=== PATIENT | male | born 1945 | race American Indian/Alaskan Native ===

== ENCOUNTER 2018-08-10 15:05 | Inpatient (IN) | payer MEDICARE ==
[2018-08-10 16:08] LABS: Basophils # (Auto) 0.1 K/mm3 (0.0-0.1); Basophils % (Auto) 1.2 % (0.0-1.8); Eosinophils % (Auto) 0.3 % (0.0-4.3); Hemoglobin 9.9 gm/dl (11.8-15.2); Lymphocytes # (Auto) 0.8 K/mm3 (1.2-5.4); Mean Corpuscular HGB Conc 31 % (32-34); Mean Corpuscular Volume 75 fl (84-94); Monocytes # (Auto) 0.3 K/mm3 (0.0-0.8); Monocytes % (Auto) 5.2 % (0.0-7.3); Platelet Count 402 K/mm3 (140-440); Red Blood Count 4.25 M/mm3 (3.65-5.03); Red Cell Distribution Width 17.7 % (13.2-15.2)
[2018-08-10] MEDS ORDERED: ZOFRAN IV ONE ×2 (16:18→22:13)
[2018-08-10] MEDS ORDERED: NACL 0.9% 1000 ML 1,000 ML ONE (16:18)
[2018-08-10] MEDS ORDERED: NACL 0.9% 1000 ML 1,000 ML IV ONE (16:18)
--- NOTE | 2018-08-10 16:18 | Emergency Department Report ---
ED Abdominal Pain HPI - General Chief Complaint: Abdominal Pain Stated Complaint: VOMITING/DEHDRATION Time Seen by Provider: 08/10/18 16:17 Source: patient, EMS Mode of arrival: Stretcher Limitations: No Limitations - History of Present Illness Initial Comments: Patient is a 72-year-old male presents emergency room for evaluation for nausea vomiting and abdominal pain. Patient was sent here from [facility] for evaluation due to his symptoms. Patient arrived via EMS. Patient states his pain is a 7 out of 10 and is generalized. Patient states he has been vomiting for approximately 3 days. Patient states he has has constipation has been going on for 12 days. Patient denies diarrhea. Patient denies blood in his vomitus. Patient states he is feeling dry. Patient is currently over with psychiatric facility for a 1013 for suicidal ideations but according to the document was downgraded to a 1012 and is a voluntary admission to [place] Complaint: abdominal pain -: Sudden Location: diffuse Radiation: none Migration to: no migration Severity scale (0 -10): 7 Quality: cramping, stabbing, aching Consistency: constant Improves With: rest Worsens With: eating, vomiting, movement Associated Symptoms: nausea, vomiting, constipation. denies: diarrhea, fever, chills, dysuria, hematemesis, hematochezia, melena, hematuria - Related Data Home Medications Medication Instructions Recorded Confirmed Last Taken ARIPiprazole [Abilify] 15 mg PO QHS 08/10/18 08/10/18 Unknown Docusate Sodium [Colace] 100 mg PO BID 08/10/18 08/10/18 Unknown Gabapentin [Neurontin] 800 mg PO TID 08/10/18 08/10/18 Unknown Magnesium Hydroxide [Milk of 40 mg PO DAILY 08/10/18 08/10/18 Unknown Magnesia] Polyethylene Glycol 3350 [Miralax 17 gm PO QDAY 08/10/18 08/10/18 Unknown 3350] Sertraline [Zoloft] 50 mg PO QAM 08/10/18 08/10/18 Unknown Trazodone HCl 150 mg PO QHS 08/10/18 08/10/18 Unknown Allergies Allergy/AdvReac Type Severity Reaction Status Date / Time No Known Allergies Allergy Unverified 08/10/18 15:20 ED Review of Systems ROS: Stated complaint: VOMITING/DEHDRATION Other details as noted in HPI Constitutional: denies: chills, fever Eyes: denies: eye pain, eye discharge, vision change ENT: denies: ear pain, throat pain Respiratory: denies: cough, shortness of breath, wheezing Cardiovascular: denies: chest pain, palpitations Endocrine: no symptoms reported Gastrointestinal: abdominal pain, nausea, vomiting, constipation. denies: diar santhosh Genitourinary: denies: urgency, dysuria Musculoskeletal: denies: back pain, joint swelling, arthralgia Skin: denies: rash, lesions Neurological: denies: headache, weakness, paresthesias Psychiatric: denies: anxiety, depression Hematological/Lymphatic: denies: easy bleeding, easy bruising ED Past Medical Hx - Past Medical History Previous Medical History?: Yes Hx Hypertension: Yes Additional medical history: BPH, Chronic Pain - Social History Smoking Status: Current Every Day Smoker Substance Use Type: None - Medications Home Medications: Home Medications Medication Instructions Recorded Confirmed Last Taken Type ARIPiprazole [Abilify] 15 mg PO QHS 08/10/18 08/10/18 Unknown History Docusate Sodium [Colace] 100 mg PO BID 08/10/18 08/10/18 Unknown History Gabapentin [Neurontin] 800 mg PO TID 08/10/18 08/10/18 Unknown History Magnesium Hydroxide [Milk of 40 mg PO DAILY 08/10/18 08/10/18 Unknown History Magnesia] Polyethylene Glycol 3350 [Miralax 17 gm PO QDAY 08/10/18 08/10/18 Unknown His tory 3350] Sertraline [Zoloft] 50 mg PO QAM 08/10/18 08/10/18 Unknown History Trazodone HCl 150 mg PO QHS 08/10/18 08/10/18 Unknown History ED Physical Exam - General Limitations: No Limitations General appearance: alert, in no apparent distress - Head Head exam: Present: atraumatic, normocephalic - Eye Eye exam: Present: normal appearance - ENT ENT exam: Present: mucous membranes moist - Neck Neck exam: Present: normal inspection - Respiratory Respiratory exam: Present: normal lung sounds bilaterally. Absent: respiratory distress, wheezes, rales - Cardiovascular Cardiovascular Exam: Present: regular rate, normal rhythm. Absent: systolic murmur, diastolic murmur, rubs, gallop - GI/Abdominal GI/Abdominal exam: Present: soft, tenderness (generalized tenderness), normal bowel sounds. Absent: distended, guarding, rebound - Rectal Rectal exam: Present: deferred - Extremities Exam Extremities exam: Present: normal inspection - Back Exam Back exam: Present: normal inspection - Neurological Exam Neurological exam: Present: alert, oriented X3 - Psychiatric Psychiatric exam: Present: normal affect, normal mood - Skin Skin exam: Present: warm, dry, intact, normal color. Absent: rash ED Course Vital Signs 08/10/18 08/10/18 08/10/18 16:02 16:03 21:37 Temperature 97.6 F Pulse Rate 83 78 Respiratory 22 22 16 Rate Blood Pressure 124/68 148/78 [Left] O2 Sat by Pulse 100 100 100 Oximetry 08/10/18 21:45 Temperature Pulse Rate Respiratory Rate Blood Pressure [Left] O2 Sat by Pulse 97 Oximetry - Reevaluation(s) Reevaluation #1: Patient failed by mouth challenge. Discussed all results with patient. Patient will be admitted to the hospitalist service. Patient agrees to plan of care. 08/10/18 22:13 - Consultations Consultation #1: Discussed case with Dr. Chandler, interventional radiology and he does not recommend any type of intervention for the incidental finding on chest CT but recommends pulmonology consult 08/10/18 22:10 Consultation #2: Hospitalist consulted for admission. Hospitalist to admit patient. Hospitalist to assume care patient. 08/10/18 22:13 ED Medical Decision Making - Lab Data Result diagrams: 08/10/18 15:47 08/10/18 15:47 - Radiology Data Radiology results: report reviewed IMPRESSION: Stool pattern as described. The patient appears impacted and may also be constipated as described. No evidence of bowel obstruction. Portion of a right pleural effusion visualized. This may be partially loculated. Entire effusion is not visualized. There is a oval density projecting into the right lower lung field as described. Please see above comments. CT of the chest may be helpful for further characterization. Postsurgical changes gastroesophageal junction. Hiatal hernia appears to be present. [place] of the antrum of the stomach appear thickened. I cannot exclude gastritis. Nonobstructing renal calculi visualized in both kidneys. There is also a nonobstructing calculus in the distal third of the right ureter as described. Several small bladder calculi are visualized collected in the inferior aspect of the urinary bladder to the left of midline. Nonspecific diffuse prostate enlargement. Prior laminectomies at L3, L4, L5. There is grade 1 spondylolisthesis L5 in relation to S1. Previous cholecystectomy. Pancreas is diffusely atrophied. Adrenal hyperplasia is suspected. PROCEDURE: CT CHEST WO CON TECHNIQUE: Computerized axial tomography of the chest was performed without contrast material. This study is performed without intravenous contrast and the sensitivity for pathology, including neoplasms, adenopathy, abscess, pulmonary embolism and aortic dissection, is reduced. CT DOSE LENGTH PRODUCT: 692.3 mGycm HISTORY: pleural effusion COMPARISONS: None . FINDINGS: Heart and pericardium: No pericardial effusion or thickening. Thoracic aorta: Atherosclerotic calcification of the aorta. Normal caliber. Pulmonary vasculature: Normal. Lymph nodes: No enlarged thoracic lymph nodes. Lungs: At the right lung base there is focal airspace density with whorled appearance of lung markings extending to the opacity, which has the appearance of rounded atelectasis. There is right lung volume loss. There is platelike atelectasis in the right upper lung is well. Pleural space: There is a small right pleural effusion, with hyperdensity of the right pleura. This could be related to a chronic effusion or possibly an empyema Musculoskeletal structures: Multilevel thoracic spine degenerative changes. IMPRESSION: There is a small right pleural effusion. There is hyperdensity of the right pleura, which could be related to chronic effusion or possibly empyema. Opacity in the right lung base is favored to be related to rounded atelectasis. There is also platelike atelectasis in the right upper lung. There is overall right lung volume loss ADDENDUM ADDENDUM: Right pleural fluid collection measures 8 cm transverse x 2 cm AP x 12 cm craniocaudal. - Medical Decision Making Patient is a 72-year-old male that presents emergent with complaints of intractable nausea and vomiting and abdominal pain constipation for 12 days. Patient unable to tolerate by mouth intake. Patient admitted to the hospitalist service. Patient's labs unremarkable. Patient's CT of the abdomen done with no acute findings of possible gastritis and a pleural effusion. Patient then had a CT scan done based on the recommendation of the radiologist. CT of the chest shows a peripheral effusion which was read as possible loculation versus empyema. I discussed these findings with Dr. Chandler our interventional radiologist and he does not recommend further interventions but rather this is a incidental finding and just needs to be monitored. - Differential Diagnosis abdominal pain.Nausea vomiting. Dehydration. Critical Care Time: Yes Critical care attestation.: If time is entered above; I have spent that time in minutes in the direct care of this critically ill patient, excluding procedure time. Critical Care Time: 35 minutes ED Disposition Clinical Impression: Pleural effusion Anemia Qualifiers: Anemia type: unspecified type Qualified Code(s): D64.9 - Anemia, unspecified Intractable nausea and vomiting Qualifiers: Vomiting type: unspecified Qualified Code(s): R11.2 - Nausea with vomiting, unspecified Constipation Qualifiers: Constipation type: unspecified constipation type Qualified Code(s): K59.00 - Constipation, unspecified Abdominal pain Qualifiers: Abdominal location: generalized Qualified Code(s): R10.84 - Generalized abdominal pain Disposition: OP ADMIT IP TO THIS HOSP Is pt being admited?: Yes Does the pt Need Aspirin: No Condition: Critical Time of Disposition: 22:17
[2018-08-10] MEDS ORDERED: ZOFRAN ONE (16:19)
[2018-08-10 16:31] LABS: Alanine Aminotransferase 6 units/L (7-56); Albumin 3.6 g/dL (3.9-5); BUN/Creatinine Ratio 26; Blood Urea Nitrogen 13 mg/dL (9-20); Calcium 8.9 mg/dL (8.4-10.2); Hemolysis Index 38
[2018-08-10] MEDS ORDERED: ATIVAN ONE (17:28)
[2018-08-10] MEDS ORDERED: ATIVAN IV ONE (17:30)
--- NOTE | 2018-08-10 20:25 | Cat Scan Report ---
PROCEDURE: CT ABDOMEN PELVIS W CON TECHNIQUE: Computerized axial tomography of the abdomen and pelvis was performed after the administr ation of IV iodinated nonionic contrast. CT DOSE LENGTH PRODUCT: 834 mGycm HISTORY: ab pain. n/v COMPARISONS: None . FINDINGS: Lower Lung frias: There is a portion of a small right pleural effusion visualized. The pleura appea rs mildly thickened. This may represent loculated fluid. There is an oval density projecting into the posterior aspect of the right lower lobe only partially visualized. This extends over approximately 4.7 x 1.9 cm. This is a finding of uncertain significance. This may represent loculated pleural fluid extending into the right lower lobe, rounded atelectasis,, fluid-filled cavitary lesion, band of ate lectasis or partially visualized mass. Upper Abdomen: Postsurgical changes are seen near the gastroesophageal junction. Hiatal hernia appea rs to be present. The brand of the antrum of the stomach appears slightly thickened. I cannot exclude gastritis. The gallbladder is surgically absent. The liver showed no focal abnormalities. Pancreas appears diffu sely atrophied. The spleen is not enlarged. The adrenal glands bilaterally appear mildly diffusely en larged suggesting hyperplasia. Kidneys, Ureters and Urinary bladder: Nonobstructing renal calculi are visualized in the upper and middle third of the right kidney measuri ng up to 1 cm in size. There is minimal dilatation of the right collecting system. There appears to b e a nonobstructing calculus in the lower third of the right ureter, approximately 1 cm from the right ureterovesical junction measuring 5.4 x 4.5 x 12 mm. Nonobstructing calculi are seen in the middle a nd lower third of the left kidney measuring up to 1.4 cm. No ureteral calculi are seen on the left. N o renal masses are identified. Small bladder calculi collected in the inferior aspect of urinary bladder to the left of midline delma uring up to 5 mm. Urinary bladder is otherwise unremarkable. Retroperitoneum: Atherosclerotic changes are seen in the abdominal aorta. No aneurysm is visualized. Nonspecific subcentimeter lymph nodes are seen in the retroperitoneum. No pathologically enlarged ly mph nodes are identified. Bowel: The rectum is largely distended with stool. The patient may be impacted. There is moderate to large amount of stool scattered throughout large portions of the colon. The patient may be constipat ed. No evidence of bowel obstruction. There is no ascites or free intraperitoneal gas. The appendix i s not visualized. Reproductive organs: There is nonspecific diffuse prostate enlargement. Other: Postsurgical changes are seen in the lumbar spine from prior laminectomies at L3, L4, L5. Ther e is grade 1 spondylolisthesis L5 in relation to S1. IMPRESSION: Stool pattern as described. The patient appears impacted and may also be constipated as described. No evidence of bowel obstruction. Portion of a right pleural effusion visualized. This may be partially loculated. Entire effusion is n ot visualized. There is a oval density projecting into the right lower lung field as described. Pleas e see above comments. CT of the chest may be helpful for further characterization. Postsurgical changes gastroesophageal junction. Hiatal hernia appears to be present. Brand of the ant rum of the stomach appear thickened. I cannot exclude gastritis. Nonobstructing renal calculi visualized in both kidneys. There is also a nonobstructing calculus in t he distal third of the right ureter as described. Several small bladder calculi are visualized collec jailyn in the inferior aspect of the urinary bladder to the left of midline. Nonspecific diffuse prostate enlargement. Prior laminectomies at L3, L4, L5. There is grade 1 spondylolisthesis L5 in relation to S1. Previous cholecystectomy. Pancreas is diffusely atrophied. Adrenal hyperplasia is suspected. This document is electronically signed by Agustin Maddox MD., August 10 2018 08:23:49 PM ET
--- NOTE | 2018-08-10 21:30 | Cat Scan Report ---
PROCEDURE: CT CHEST WO CON TECHNIQUE: Computerized axial tomography of the chest was performed without contrast material. This study is performed without intravenous contrast and the sensitivity for pathology, including neoplasm s, adenopathy, abscess, pulmonary embolism and aortic dissection, is reduced. CT DOSE LENGTH PRODUCT: 692.3 mGycm HISTORY: pleural effusion COMPARISONS: None . FINDINGS: Heart and pericardium: No pericardial effusion or thickening. Thoracic aorta: Atherosclerotic calcification of the aorta. Normal caliber. Pulmonary vasculature: Normal. Lymph nodes: No enlarged thoracic lymph nodes. Lungs: At the right lung base there is focal airspace density with whorled appearance of lung markin gs extending to the opacity, which has the appearance of rounded atelectasis. There is right lung vol ume loss. There is platelike atelectasis in the right upper lung is well. Pleural space: There is a small right pleural effusion, with hyperdensity of the right pleura. This could be related to a chronic effusion or possibly an empyema Musculoskeletal structures: Multilevel thoracic spine degenerative changes. IMPRESSION: There is a small right pleural effusion. There is hyperdensity of the right pleura, which could be re lated to chronic effusion or possibly empyema. Opacity in the right lung base is favored to be related to rounded atelectasis. There is also plateli ke atelectasis in the right upper lung. There is overall right lung volume loss This document is electronically signed by Cassie Penny MD., August 10 2018 09:28:31 PM ET
--- NOTE | 2018-08-10 22:15 | Event Note ---
Date: 08/10/18 Contacted about right pleural effusion. 72 year old male with psychatric issues and abdominal complaints with incidental finding of a small right pleural effusion with an thick rim/loculation. There is also an area of rounded atelectasis and platelike atleactasis. There is mediastinal shift to the right due to volume loss. This is likely a chronic loculation due to prior sequelae. Common causes are old infection or hemothorax. Patient cannot provide history due to psychiatric issues. No fever. No WBC count. No pulmonary complaints. Suspect this is a chronic loculation unless clinical or laboratory status changes. Do not recommend any IR intervention.
[2018-08-10] MEDS ORDERED: ZOFRAN IV PRN (23:02)
[2018-08-10] MEDS ORDERED: SODIUM CHLORIDE FLUSH SYRINGE 10 ML IV PRN (23:02)
--- NOTE | 2018-08-10 23:04 | History and Physical Report ---
History of Present Illness Date of examination: 08/10/18 History of present illness: 73-year-old man with a history of hypertension, BPH, psychiatric history he was transferred from her for evaluation of nausea and vomiting. The patient stated that these have been nausea vomiting intermittently over the last 2 weeks. He was admitted at [facility], he had a GI workup there, including endoscopy, he does not know the results. Patient wants to follow up with his own doctors in [place], he is a poor historian Review of systems Constitutional: no weight loss, chills, fever Ears, eyes, nose, mouth and throat: no nasal congestion, no nasal discharge, no sinus pressure, no vision change, no red eye. Neck: No neck pain or rigidity. Cardiovascular: no palpitations, chest pain Respiratory: no cough, shortness of breath Gastrointestinal: no hematochezia, abdominal pain Genitourinary : no frequency , no hematuria Musculoskeletal: no joint swelling or muscle ache Integumentary: no rash, no pruritis Neurological: no parathesias, no focal weakness Endocrine: no cold or heat intolerance, no polyuria or polydipsia Hematologic/Lymphatic: no easy bruising, no easy bleeding, no gland swelling Allergic/Immunologic: no urticaria, no angioedema. PAST MEDICAL HISTORY: hypertension, BPH, psychiatric history PAST SURGICAL HISTORY: Cholecystectomy, back surgery, knee SOCIAL HISTORY: Denies alcohol, drugs, tobacco FAMILY HISTORY: Hypertension Medications and Allergies Allergies Allergy/AdvReac Type Severity Reaction Status Date / Time No Known Allergies Allergy Unverified 08/10/18 15:20 Home Medications Medication Instructions Recorded Confirmed Last Taken Type ARIPiprazole [Abilify] 15 mg PO QHS 08/10/18 08/10/18 Unknown History Docusate Sodium [Colace CAP] 100 mg PO BID 08/10/18 08/10/18 Unknown History Gabapentin [Neurontin] 800 mg PO TID 08/10/18 08/10/18 Unknown History Magnesium Hydroxide [Milk of 40 mg PO DAILY 08/10/18 08/10/18 Unknown History Magnesia] Sertraline [Zoloft] 50 mg PO QAM 08/10/18 08/10/18 Unknown History Trazodone HCl 150 mg PO QHS 08/10/18 08/10/18 Unknown History Polyethylene Glycol 3350 [Miralax 17 gm PO QDAY #30 powd.pack 08/14/18 Unknown Rx 3350] QUEtiapine [SEROquel] 150 mg PO QHS #30 tablet 08/14/18 Unknown Rx Sennosides/Docusate [Senokot S] 1 tab PO QHS #30 tablet 08/14/18 Unknown Rx Exam - Physical Exam Narrative exam: General Apperance: The patient lying in bed, breathing comfortable HEENT: Normocephalic, atraumatic. Pupils equally round and reactive to light, EOMI, no sclericterus or JVD or thyromegaly or nodule. , no carotid bruit, mucous membranes moist, no exudate or erythema Heart: S1-S2, regular is rhythm Lungs: Clear to auscultation bilaterally, breathing comfortable Abdomen: Positive bowel sounds, soft, nontender, nondistended, no organomegaly Extremities: No edema cyanosis clubbing Skin: no rash, nodule, warm and dry Neuro: cranial nerves 2-12 intact, speech is fluent, motor/sensory intact - Constitutional Vitals: Temp Pulse Resp BP Pulse Ox 97.6 F 78 16 148/78 100 08/10/18 16:02 08/10/18 21:37 08/10/18 21:37 08/10/18 21:37 08/10/18 21:37 Results - Labs CBC & Chem 7: 08/13/18 11:50 08/13/18 11:50 Labs: Abnormal lab results 08/10/18 08/10/18 Range/Units 15:47 15:47 Hgb 9.9 L (11.8-15.2) gm/dl Hct 32.0 L (35.5-45.6) % MCV 75 L (84-94) fl MCH 23 L (28-32) pg MCHC 31 L (32-34) % RDW 17.7 H (13.2-15.2) % Lymph % (Auto) 12.0 L (13.4-35.0) % Lymph # 0.8 L (1.2-5.4) K/mm3 Seg Neutrophils % 81.3 H (40.0-70.0) % Creatinine 0.5 L (0.8-1.5) mg/dL ALT 6 L (7-56) units/L Albumin 3.6 L (3.9-5) g/dL - Imaging and Cardiology CT scan - abdomen: report reviewed CT scan - chest: report reviewed CT scan - pelvis: report reviewed Assessment and Plan Assessment Intractable nausea vomiting, improving Pleural Effusion, asymptomatic hypertension BPH psychiatric history Plan Admit to medicine Start IV fluid, antiemetics, consult pulmonary Continue appropriate outpatient medications DVT prophylaxis
[2018-08-10] MEDS ORDERED: REGLAN IV PRN (23:51)
[2018-08-11] MEDS: TYLENOL PO PRN ×3 (01:19→21:38)
[2018-08-11] MEDS: NACL 0.45% 1000 ML 1,000 ML IV SCH ×2 (03:53→15:14)
[2018-08-11 06:05] LABS: Basophils % (Auto) 0.5 % (0.0-1.8); Eosinophils % (Auto) 0.7 % (0.0-4.3); Hematocrit 22.1 % (35.5-45.6); Lymphocytes # (Auto) 0.7 K/mm3 (1.2-5.4); Lymphocytes % (Auto) 14.9 % (13.4-35.0); Mean Corpuscular HGB Conc 32 % (32-34); Mean Corpuscular Volume 75 fl (84-94); Monocytes # (Auto) 0.3 K/mm3 (0.0-0.8); Monocytes % (Auto) 6.4 % (0.0-7.3); Platelet Count 287 K/mm3 (140-440); Red Blood Count 2.96 M/mm3 (3.65-5.03); Red Cell Distribution Width 17.1 % (13.2-15.2)
[2018-08-11 06:28] LABS: BUN/Creatinine Ratio 24; Blood Urea Nitrogen 12 mg/dL (9-20); Calcium 8.1 mg/dL (8.4-10.2); Hemolysis Index 2
[2018-08-11] MEDS: NEURONTIN PO SCH ×3 (08:37→19:45)
--- NOTE | 2018-08-11 09:44 | Consultation ---
History of Present Illness Consult date: 08/11/18 Reason for consult: pleural effusion History of present illness: Called to evaluate case of a 72-year-old male, admitted on transfer from [facility] due to intractable nausea and vomiting. The patient had been admitted originally therefore psychiatric issues. Started with GI symptoms while day or which he claims has been present for the past 2 or 3 days. Per notes, reportedly he had an endoscopy but no information at this time. On admission here, he was noted with incidental fluid collection on the pleural space with loculation, on abdominal CT scan. Chest CT scan confirmed this plus pleural thickening, evidence of possible rounded atelectasis and ipsilateral volume loss of the right lung on my review. Pulmonary asked to see for further opinion. On further discussion with the patient, he denies any prior history of respira tory problems. He is alone during the interview. He is reasonably communicative and denies any history of chronic cough, hemoptysis, Actiq expectoration. Reports no change In cough pattern. He does report to be a chronic smoker smoking half to 1 pack cigarettes per week, history of smoking for the last 30 years at least. He also reports 50 pounds weight loss in recent months. When I ask him about chronic GI symptoms, he reports none. No change in bowel pattern but history very limited at this point. Apparently no chronic fever or chills. He denies prior history of a pneumonia. He denies prior history of chronic vomiting. Denies chest pain. No prior history of fluid collections on previous x-rays or reported pulmonary abnormalities. 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 Medications and Allergies Allergies Allergy/AdvReac Type Severity Reaction Status Date / Time No Known Allergies Allergy Unverified 08/10/18 15:20 Home Medications Medication Instructions Recorded Confirmed Last Taken Type ARIPiprazole [Abilify] 15 mg PO QHS 08/10/18 08/10/18 Unknown History Docusate Sodium [Colace] 100 mg PO BID 08/10/18 08/10/18 Unknown History Gabapentin [Neurontin] 800 mg PO TID 08/10/18 08/10/18 Unknown History Magnesium Hydroxide [Milk of 40 mg PO DAILY 08/10/18 08/10/18 Unknown History Magnesia] Polyethylene Glycol 3350 [Miralax 17 gm PO QDAY 08/10/18 08/10/18 Unknown History 3350] Sertraline [Zoloft] 50 mg PO QAM 08/10/18 08/10/18 Unknown History Trazodone HCl 150 mg PO QHS 08/10/18 08/10/18 Unknown History Active Meds: Active Medications Acetaminophen (Tylenol) 650 mg PO Q4H PRN PRN Reason: Pain MILD(1-3)/Fever >100.5/PERSAUD Last Admin: 08/11/18 01:19 Dose: 650 mg Documented by: Aripiprazole (Abilify) 15 mg PO QHS [facility] Docusate Sodium (Colace) 100 mg PO BID [facility] Enoxaparin Sodium (Lovenox) 40 mg SUB-Q QDAY [facility] Gabapentin (Neurontin) 800 mg PO TID [facility] Last Admin: 08/11/18 08:37 Dose: 800 mg Documented by: Sodium Chloride (Nacl 0.45% 1000 Ml) 1,000 mls @ 75 mls/hr IV DIRECT [facility] Last Admin: 08/11/18 03:53 Dose: 75 mls/hr Documented by: Metoclopramide HCl (Reglan) 10 mg IV Q6H PRN PRN Reason: Nausea And Vomiting Ondansetron HCl (Zofran) 4 mg IV Q8H PRN PRN Reason: Nausea And Vomiting Quetiapine Fumarate (Seroquel) 300 mg PO QHS [facility] Last Admin: 08/11/18 01:19 Dose: 300 mg Documented by: Sertraline HCl (Zoloft) 50 mg PO QAM [facility] Sodium Chloride (Sodium Chloride Flush Syringe 10 Ml) 10 ml IV BID [facility] Sodium Chloride (Sodium Chloride Flush Syringe 10 Ml) 10 ml IV PRN PRN PRN Reason: LINE FLUSH Review of Systems All systems: negative (none) Physical Examination Vital signs: Vital Signs Temp Pulse Resp BP Pulse Ox 97.6 F 83 22 124/68 100 08/10/18 16:02 08/10/18 16:02 08/10/18 16:02 08/10/18 16:02 08/10/18 16:02 General appearance: no acute distress, other (chronically ill-looking) Eyes: non-icteric ENT: oropharynx moist Neck: no JVD Ascultation: Bilateral: diminished breath sounds (right more than left) Percussion: Right: dull Cardiovascular: regular rate and rhythm Gastrointestinal: normoactive bowel sounds, non-distended Integumentary: normal Extremities: no cyanosis, no edema Musculoskeletal: no deformities normal mental status, non-focal exam, CN II-XII normal other (affect is flat) Results - Laboratory Findings CBC and BMP: 08/11/18 05:08 08/11/18 05:08 Abnormal lab findings: Abnormal Labs 08/10/18 08/10/18 08/11/18 15:47 15:47 05:08 WBC 4.4 L RBC 2.96 L Hgb 9.9 L 7.0 L Hct 32.0 L 22.1 L D MCV 75 L 75 L MCH 23 L 24 L MCHC 31 L RDW 17.7 H 17.1 H Lymph % (Auto) 12.0 L Lymph # 0.8 L 0.7 L Seg Neutrophils % 81.3 H 77.5 H Potassium Chloride Creatinine 0.5 L Glucose Calcium ALT 6 L Albumin 3.6 L 08/11/18 05:08 WBC RBC Hgb Hct MCV MCH MCHC RDW Lymph % (Auto) Lymph # Seg Neutrophils % Potassium 3.2 L D Chloride 108.3 H Creatinine 0.5 L Glucose 103 H Calcium 8.1 L ALT Albumin - Diagnostic Findings CT scan - chest: report reviewed, image reviewed Assessment and Plan Loculated right pleural effusion with ipsilateral atelectasis. Etiology unknown at this time. As noted on the report, this could be a chronic process perhaps secondary to inflammatory disease such as prior pneumonia. History however is lacking. Round atelectasis can be seen secondary to asbestos exposure, but I don't see any pleural plaques/asbestos hallmarks of present CT scan. If he has prior history of chronic vomiting this could explain some of his x-ray findings, but again no history. Intractable nausea and vomiting Psychiatric illness Recommendations GI evaluation Aspiration precautions I think history of unexplained weight loss is worrisome in a chronic smoker with this radiographic picture. I don't see any endobronchial lesions on the scan and concur this might be a chronic process. However, if there is any question about the origin, bronchoscopic evaluation prior to discharge may be of some help, to exclude hidden endobronchial malignancy. I discussed all this findings with the patient detail. All questions answered. Again, no family members present for further discussion. Dr. Penny will follow up from this point on tomorrow, will discuss with him on hand off
[2018-08-11] MEDS: LOVENOX SUB-Q SCH (09:45)
[2018-08-11] MEDS: SODIUM CHLORIDE FLUSH SYRINGE 10 ML IV SCH ×2 (09:46→22:50)
[2018-08-11] MEDS: COLACE PO SCH ×2 (09:46→22:49)
[2018-08-11] MEDS: ZOLOFT PO SCH (09:46)
[2018-08-11] MEDS ORDERED: MORPHINE IV ONE (11:58)
--- NOTE | 2018-08-11 14:50 | Progress Note ---
Assessment and Plan Assessment and plan: 72-year-old man with a history of hypertension, BPH, psychiatric history he was transferred from her for evaluation of nausea and vomiting. The patient stated that these have been nausea vomiting intermittently over the last 2 weeks. He was admitted at [facility], he had a GI workup there, including endoscopy, he does not know the results. Patient wants to follow up with his own doctors in [place], he is a poor historian CT: Stool pattern as described. The patient appears impacted and may also be constipated as described. No evidence of bowel obstruction. Portion of a right pleural effusion visualized. This may be partially loculated. Entire effusion is not visualized. There is a oval density projecting into the right lower lung field as described. Please see above comments. CT of the chest may be helpful for further characterization. Postsurgical changes gastroesophageal junction. Hiatal hernia appears to be present. [place] of the antrum of the stomach appear thickened. I cannot exclude gastritis. Nonobstructing renal calculi visualized in both kidneys. There is also a nonobstructing calculus in the distal third of the right ureter as described. Several small bladder calculi are visualized collected in the inferior aspect of the urinary bladder to the left of midline. Nonspecific diffuse prostate enlargement. Prior laminectomies at L3, L4, L5. The re is grade 1 spondylolisthesis L5 in relation to S1. Previous cholecystectomy. Pancreas is diffusely atrophied. Adrenal hyperplasia is suspected. Intractable nausea vomiting, improving Severe Constipation with Distended Rectum Non obstructive Multiple renal Calculi Spndylolisthesis L5 Prescription Drug dependance including Opioid dependance Hypertension Loculated Right Pleural Effusion with ipsilateral atelectasis Failure to thrive with over 50 Ibs weight loss per family BPH psychiatric history Plan Continue supportive care Avoid Narcotic use Discussed with nursing will attempt to disimpact the patient If not successful will consult GI Stool softners and fleet enema ordered Pulmonary input noted, Continue IV fluid, antiemetics Continue appropriate outpatient medications DVT prophylaxis Plan discussed with the Spouse History Interval history: Patient seen and examined, in no acute distress. complaints of chronic pain and a new lower abdominal pain 8/10 in intensity, No other associated nausea and vomiting Hospitalist Physical - Constitutional Vitals: Temp Pulse Resp BP Pulse Ox 97.8 F 91 H 20 138/76 100 08/11/18 13:29 08/11/18 13:29 08/11/18 13:29 08/11/18 13:29 08/11/18 13:29 General appearance: Present: mild distress, cachectic - EENT Eyes: Present: PERRL, EOM intact ENT: hearing intact, clear oral mucosa - Neck Neck: Present: supple, normal ROM - Respiratory Respiratory effort: normal Respiratory: bilateral: CTA - Cardiovascular Rhythm: irregularly irregular Heart Sounds: Present: S1 & S2 - Extremities Extremities: no ischemia, pulses intact, pulses symmetrical, No edema, normal temperature, Full ROM Peripheral Pulses: within normal limits - Abdominal General gastrointestinal: soft, tender, non-distended, normal bowel sounds Localized gastrointestinal: tender: LLQ - Integumentary Integumentary: Present: clear, warm, dry, pale - Psychiatric Psychiatric: appropriate mood/affect, cooperative - Neurologic Neurologic: CNII-XII intact, moves all extremities - Allied Health Allied health notes reviewed: nursing Results - Labs CBC & Chem 7: 08/11/18 05:08 08/11/18 05:08 Labs: Laboratory Last Values WBC 4.4 K/mm3 (4.5-11.0) L 08/11/18 05:08 RBC 2.96 M/mm3 (3.65-5.03) L 08/11/18 05:08 Hgb 7.0 gm/dl (11.8-15.2) L 08/11/18 05:08 Hct 22.1 % (35.5-45.6) L D 08/11/18 05:08 MCV 75 fl (84-94) L 08/11/18 05:08 MCH 24 pg (28-32) L 08/11/18 05:08 MCHC 32 % (32-34) 08/11/18 05:08 RDW 17.1 % (13.2-15.2) H 08/11/18 05:08 Plt Count 287 K/mm3 (140-440) 08/11/18 05:08 Lymph % (Auto) 14.9 % (13.4-35.0) 08/11/18 05:08 [place] % (Auto) 6.4 % (0.0-7.3) 08/11/18 05:08 Eos % (Auto) 0.7 % (0.0-4.3) 08/11/18 05:08 Baso % (Auto) 0.5 % (0.0-1.8) 08/11/18 05:08 Lymph # 0.7 K/mm3 (1.2-5.4) L 08/11/18 05:08 [place] # 0.3 K/mm3 (0.0-0.8) 08/11/18 05:08 Eos # 0.0 K/mm3 (0.0-0.4) 08/11/18 05:08 Baso # 0.0 K/mm3 (0.0-0.1) 08/11/18 05:08 Seg Neutrophils % 77.5 % (40.0-70.0) H 08/11/18 05:08 Seg Neutrophils # 3.4 K/mm3 (1.8-7.7) 08/11/18 05:08 Sodium 144 mmol/L (137-145) 08/11/18 05:08 Potassium 3.2 mmol/L (3.6-5.0) L D 08/11/18 05:08 Chloride 108.3 mmol/L (98-107) H 08/11/18 05:08 Carbon Dioxide 25 mmol/L (22-30) 08/11/18 05:08 14 mmol/L 08/11/18 05:08 BUN 12 mg/dL (9-20) 08/11/18 05:08 0.5 mg/dL (0.8-1.5) L 08/11/18 05:08 Estimated GFR > 60 ml/min 08/11/18 05:08 24 % 08/11/18 05:08 Glucose 103 mg/dL (75-100) H 08/11/18 05:08 Calcium 8.1 mg/dL (8.4-10.2) L 08/11/18 05:08 0.40 mg/dL (0.1-1.2) 08/10/18 15:47 AST 13 units/L (5-40) 08/10/18 15:47 ALT 6 units/L (7-56) L 08/10/18 15:47 94 units/L (35-129) 08/10/18 15:47 6.6 g/dL (6.3-8.2) 08/10/18 15:47 3.6 g/dL (3.9-5) L 08/10/18 15:47 1.2 % 08/10/18 15:47 Active Medications - Current Medications Current Medications: Generic Name Dose Route Start Last Admin Trade Name Freq PRN Reason Stop Dose Admin Acetaminophen 650 mg 08/10/18 23:02 08/11/18 11:48 Tylenol PO 650 mg Q4H PRN Administration Pain MILD(1-3)/Fever >100.5/PERSAUD Aripiprazole 15 mg 08/11/18 22:00 Abilify PO QHS R[facility]I Docusate Sodium 100 mg 08/11/18 10:00 08/11/18 09:46 Colace PO 100 mg BID [facility]I Administration Enoxaparin Sodium 40 mg 08/11/18 10:00 08/11/18 09:45 Lovenox SUB-Q 40 mg QDAY [facility] Administration Gabapentin 800 mg 08/11/18 08:00 08/11/18 13:33 Neurontin PO 800 mg TID R[facility]I Administration Sodium Chloride 1,000 mls @ 75 mls/hr 08/10/18 23:45 08/11/18 03:53 Nacl 0.45% 1000 Ml IV 75 mls/hr DIRECT R[facility]I Administration Magnesium Hydroxide 30 ml 08/11/18 12:45 Milk Of Magnesia PO Q4H PRN Constipation Metoclopramide HCl 10 mg 08/10/18 23:51 Reglan IV Q6H PRN Nausea And Vomiting Mineral Oil 133 ml 08/11/18 15:00 Fleet Mineral Oil TN 08/11/18 15:01 ONCE ONE Ondansetron HCl 4 mg 08/10/18 23:02 Zofran IV Q8H PRN Nausea And Vomiting Pantoprazole Sodium 40 mg 08/11/18 13:00 Protonix IV QDAY [facility] Potassium Chloride 40 meq 08/11/18 15:00 K-Dur PO 08/11/18 15:01 ONCE ONE Quetiapine Fumarate 300 mg 08/11/18 01:30 08/11/18 01:19 Seroquel PO 300 mg QHS R[facility]I Administration Sertraline HCl 50 mg 08/11/18 10:00 08/11/18 09:46 Zoloft PO 50 mg QAM [facility]I Administration Sodium Chloride 10 ml 08/11/18 10:00 08/11/18 09:46 Sodium Chloride Flush Syringe 10 Ml IV 10 ml BID RID[facility]I Administration Sodium Chloride 10 ml 08/10/18 23:02 Sodium Chloride Flush Syringe 10 Ml IV PRN PRN LINE FLUSH
[2018-08-11] MEDS ORDERED: FLEET MINERAL OIL PR ONE (15:00)
[2018-08-11] MEDS ORDERED: K-DUR PO ONE (15:00)
[2018-08-11] MEDS: PROTONIX IV SCH (15:08)
[2018-08-11] MEDS: MILK OF MAGNESIA PO PRN ×2 (17:47→22:48)
[2018-08-11 18:12] LABS: Bacteria,Urine 1+ /HPF (Negative); Bilirubin,Urine NEG (Negative); Blood,Urine MOD (Negative); Color,Urine Yellow (Yellow); Mucus,Urine 1+ /HPF
[2018-08-11] MEDS: ABILIFY PO SCH (21:38)
[2018-08-12] MEDS: MILK OF MAGNESIA PO PRN ×2 (05:29→22:24)
[2018-08-12] MEDS: TYLENOL PO PRN ×3 (05:29→19:57)
[2018-08-12] MEDS: NACL 0.45% 1000 ML 1,000 ML IV SCH ×2 (05:56→22:27)
[2018-08-12] MEDS ORDERED: CEPHULAC PO ONE (08:32)
--- NOTE | 2018-08-12 08:34 | Progress Note ---
Assessment and Plan Assessment and plan: 72-year-old man with a history of hypertension, BPH, psychiatric history he was transferred from her for evaluation of nausea and vomiting. The patient stated that these have been nausea vomiting intermittently over the last 2 weeks. He was admitted at [facility], he had a GI workup there, including endoscopy, he does not know the results. Patient wants to follow up with his own doctors in [place], he is a poor historian CT: Stool pattern as described. The patient appears impacted and may also be constipated as described. No evidence of bowel obstruction. Portion of a right pleural effusion visualized. This may be partially loculated. Entire effusion is not visualized. There is a oval density projecting into the right lower lung field as described. Please see above comments. CT of the chest may be helpful for further characterization. Postsurgical changes gastroesophageal junction. Hiatal hernia appears to be present. [place] of the antrum of the stomach appear thickened. I cannot exclude gastritis. Nonobstructing renal calculi visualized in both kidneys. There is also a nonobstructing calculus in the distal third of the right ureter as described. Several small bladder calculi are visualized collected in the inferior aspect of the urinary bladder to the left of midline. Nonspecific diffuse prostate enlargement. Prior laminectomies at L3, L4, L5. The re is grade 1 spondylolisthesis L5 in relation to S1. Previous cholecystectomy. Pancreas is diffusely atrophied. Adrenal hyperplasia is suspected. CT head: No acute Pathologies Intractable nausea vomiting, -Resolved Acute Cystitis-POA Severe Constipation with Distended Rectum Non obstructive Multiple renal Calculi Left arm weakness-pt Spndylolisthesis L5-poa Prescription Drug dependance including Opioid dependance-poa Hypertension-POA Cachexia Moderate Protein calorie malnourished Anemia Hypokalemia Loculated Right Pleural Effusion with ipsilateral atelectasis-POA Failure to thrive with over 50 Ibs weight loss per family-POA BPH-POA psychiatric history-POA Plan Continue supportive care Repeat Fleet enema, give lactulose x1, Continue rocephin empiric Patient refused thoracentesis- will also discuss with spouse, still high recommends especially in the setting of weight loss check H/H Avoid Narcotic use wean off seroquel. Per he slurres his words when takes, also the patient was taken double the medication at home Discussed with nursing will attempt to disimpact the patient If not successful will consult GI Stool softners and fleet enema ordered Pulmonary input noted, Continue IV fluid, antiemetics Continue appropriate outpatient medications DVT prophylaxis Plan discussed with the Spouse History Interval history: Patient seen and examined, in no acute distress. complaints of chronic pain and a new lower abdominal pain 5/10 in intensity, No other associated nausea and vomiting Hospitalist Physical - Physical exam Narrative exam: General appearance: Present: mild distress, cachectic, lethargic - EENT Eyes: Present: PERRL, EOM intact ENT: hearing intact, clear oral mucosa - Neck Neck: Present: supple, normal ROM - Respiratory Respiratory effort: normal Respiratory: bilateral: CTA - Cardiovascular Rhythm: irregularly irregular Heart Sounds: Present: S1 & S2 - Extremities Extremities: no ischemia, pulses intact, pulses symmetrical, No edema, normal temperature, Full ROM Peripheral Pulses: within normal limits - Abdominal General gastrointestinal: soft, tender, non-distended, normal bowel sounds Localized gastrointestinal: tender: LLQ - Integumentary Integumentary: Present: clear, warm, dry, pale - Psychiatric Psychiatric: appropriate mood/affect, cooperative - Neurologic Neurologic: CNII-XII intact, moves all extremities. spouse reported left sided weakness not currently evident to mi - Allied Health Allied health notes reviewed: nursing - Constitutional Vitals: Temp Pulse Resp BP Pulse Ox 97.4 F L 75 18 116/62 100 08/12/18 07:39 08/12/18 07:39 08/12/18 07:39 08/12/18 07:39 08/12/18 07:39 General appearance: Present: mild distress, cachectic Results - Labs CBC & Chem 7: 08/12/18 08:44 08/11/18 05:08 Labs: Laboratory Last Values WBC 4.4 K/mm3 (4.5-11.0) L 08/11/18 05:08 RBC 2.96 M/mm3 (3.65-5.03) L 08/11/18 05:08 Hgb 7.0 gm/dl (11.8-15.2) L 08/11/18 05:08 Hct 22.1 % (35.5-45.6) L D 08/11/18 05:08 MCV 75 fl (84-94) L 08/11/18 05:08 MCH 24 pg (28-32) L 08/11/18 05:08 MCHC 32 % (32-34) 08/11/18 05:08 RDW 17.1 % (13.2-15.2) H 08/11/18 05:08 Plt Count 287 K/mm3 (140-440) 08/11/18 05:08 Lymph % (Auto) 14.9 % (13.4-35.0) 08/11/18 05:08 [place] % (Auto) 6.4 % (0.0-7.3) 08/11/18 05:08 Eos % (Auto) 0.7 % (0.0-4.3) 08/11/18 05:08 Baso % (Auto) 0.5 % (0.0-1.8) 08/11/18 05:08 Lymph # 0.7 K/mm3 (1.2-5.4) L 08/11/18 05:08 [place] # 0.3 K/mm3 (0.0-0.8) 08/11/18 05:08 Eos # 0.0 K/mm3 (0.0-0.4) 08/11/18 05:08 Baso # 0.0 K/mm3 (0.0-0.1) 08/11/18 05:08 Seg Neutrophils % 77.5 % (40.0-70.0) H 08/11/18 05:08 Seg Neutrophils # 3.4 K/mm3 (1.8-7.7) 08/11/18 05:08 Sodium 144 mmol/L (137-145) 08/11/18 05:08 Potassium 3.2 mmol/L (3.6-5.0) L D 08/11/18 05:08 Chloride 108.3 mmol/L (98-107) H 08/11/18 05:08 Carbon Dioxide 25 mmol/L (22-30) 08/11/18 05:08 14 mmol/L 08/11/18 05:08 BUN 12 mg/dL (9-20) 08/11/18 05:08 0.5 mg/dL (0.8-1.5) L 08/11/18 05:08 Estimated GFR > 60 ml/min 08/11/18 05:08 24 % 08/11/18 05:08 Glucose 103 mg/dL (75-100) H 08/11/18 05:08 Calcium 8.1 mg/dL (8.4-10.2) L 08/11/18 05:08 0.40 mg/dL (0.1-1.2) 08/10/18 15:47 AST 13 units/L (5-40) 08/10/18 15:47 ALT 6 units/L (7-56) L 08/10/18 15:47 94 units/L (35-129) 08/10/18 15:47 6.6 g/dL (6.3-8.2) 08/10/18 15:47 3.6 g/dL (3.9-5) L 08/10/18 15:47 1.2 % 08/10/18 15:47 Yellow (Yellow) 08/11/18 17:09 Slightly-cloudy (Clear) 08/11/18 17:09 5.0 (5.0-7.0) 08/11/18 17:09 Ur Specific [place] 1.047 (1.003-1.030) H 08/11/18 17:09 30 mg/dl mg/dL (Negative) 08/11/18 17:09 Neg mg/dL (Negative) 08/11/18 17:09 Tr mg/dL (Negative) 08/11/18 17:09 Mod (Negative) 08/11/18 17:09 Neg (Negative) 08/11/18 17:09 Neg (Negative) 08/11/18 17:09 2.0 mg/dL (<2.0) 08/11/18 17:09 Ur Leukocyte Esterase Tr (Negative) 08/11/18 17:09 14.0 /HPF (0.0-6.0) H 08/11/18 17:09 77.0 /HPF (0.0-6.0) 08/11/18 17:09 1+ /HPF (Negative) 08/11/18 17:09 1+ /HPF 08/11/18 17:09 Few /HPF 08/11/18 17:09 Active Medications - Current Medications Current Medications: Generic Name Dose Route Start Last Admin Trade Name Freq PRN Reason Stop Dose Admin Acetaminophen 650 mg 08/10/18 23:02 08/12/18 05:29 Tylenol PO 650 mg Q4H PRN Administration Pain MILD(1-3)/Fever >100.5/PERSAUD Aripiprazole 15 mg 08/11/18 22:00 08/11/18 21:38 Abilify PO 15 mg QHS RIDDHI Administration Docusate Sodium 100 mg 08/11/18 10:00 08/11/18 22:49 Colace PO 100 mg BID RIDDHI Administration Enoxaparin Sodium 40 mg 08/11/18 10:00 08/11/18 09:45 Lovenox SUB-Q 40 mg QDAY R[facility]I Administration Gabapentin 800 mg 08/11/18 08:00 08/11/18 19:45 Neurontin PO 800 mg TID RID[facility]I Administration Sodium Chloride 1,000 mls @ 75 mls/hr 08/10/18 23:45 08/12/18 05:56 Nacl 0.45% 1000 Ml IV 75 mls/hr DIRECT RID[facility]I Administration Ceftriaxone Sodium 1 gm in 50 mls @ 100 mls/hr 08/12/18 10:00 Rocephin/Ns 1 Gm/50 Ml IV Q24HR RIDDHI Protocol Lactulose 20 gm 08/12/18 08:32 Cephulac PO 08/12/18 08:33 ONCE ONE Magnesium Hydroxide 30 ml 08/11/18 12:45 08/12/18 05:29 Milk Of Magnesia PO 30 ml Q4H PRN Administration Constipation Metoclopramide HCl 10 mg 08/10/18 23:51 Reglan IV Q6H PRN Nausea And Vomiting Ondansetron HCl 4 mg 08/10/18 23:02 Zofran IV Q8H PRN Nausea And Vomiting Pantoprazole Sodium 40 mg 08/11/18 13:00 08/11/18 15:08 Protonix IV 40 mg QDAY R[facility]I Administration Quetiapine Fumarate 300 mg 08/11/18 01:30 08/11/18 22:49 Seroquel PO 300 mg QHS R[facility]I Administration Sertraline HCl 50 mg 08/11/18 10:00 08/11/18 09:46 Zoloft PO 50 mg QAM R[facility]I Administration Sodium Biphosphate/Sodium Phosphate 133 ml 08/12/18 08:32 Fleet SC 08/12/18 08:33 ONCE ONE Sodium Chloride 10 ml 08/11/18 10:00 08/11/18 22:50 Sodium Chloride Flush Syringe 10 Ml IV 10 ml BID RID[facility]I Administration Sodium Chloride 10 ml 08/10/18 23:02 Sodium Chloride Flush Syringe 10 Ml IV PRN PRN LINE FLUSH Nutrition/Malnutrition Assess - Dietary Evaluation Nutrition/Malnutrition Findings: Nutrition Notes Start: 08/11/18 17:22 Freq: Status: Active Protocol: Document 08/11/18 17:22 RM (Rec: 08/11/18 17:28 RM [email or web address]) Nutrition Notes Need for Assessment generated from: rn cardiovascular icu Initial or Follow up Assessment Current Diagnosis Hypertension Other Pertinent Diagnosis N/V X 2 weeks Current Diet Cardiac Labs/Tests Reviewed Pertinent Medications Reviewed Height 6 ft Weight 68 kg Usual Body Weight 90.45 kg [place] Body Weight (kg) 80.90 BMI 20.3 Subjective/Other Information Screened for malnutrition, chewing difficulty, and skin risk. Eros 17 points. Pt stated that [employer] his appetite was poor and that he ate 1 meal daily. Stated that his appetite is poor now. Declined all ONS. Pt was starting to eat first meal at time of visit. Pt stated UBW is 199 lbs but unsure how long ago he weighed that. Noted orbital wasting. Burn Absent Trauma Absent #1 Nutrition Diagnosis Malnutrition Etiology decreased appetite, N/V As Evidenced by Signs and Symptoms orbital wasting, pt statement that [employer] he ate 1 meal daily Is patient on ventilator? No Is Patient Ambulatory and/or Out of Bed Yes REE-([facility]-ambulatory/OOB) [ [id number]] Calculation Used for Recommendations [facility] Additional Notes Protein Needs: 68-82g (1-1.2g/ kg) Fluid Needs: 1 ml/kcal Nutrition Intervention Change Diet Order: Continue current Goal #1 PO tolerance Goal #2 Meet at least 75% of calorie and protein needs via PO intakes Anticipated Discharge Needs: Unable to determine at this time Follow-Up By: 08/14/18 Additional Comments Follow for PO intakes
[2018-08-12] MEDS: NEURONTIN PO SCH ×3 (08:36→20:42)
[2018-08-12] MEDS: PROTONIX IV SCH (09:00)
[2018-08-12] MEDS: ZOLOFT PO SCH (09:00)
[2018-08-12] MEDS: LOVENOX SUB-Q SCH (09:00)
[2018-08-12] MEDS ORDERED: FLEET PR ONE (09:00)
[2018-08-12] MEDS: COLACE PO SCH ×2 (09:00→22:25)
[2018-08-12] MEDS: SODIUM CHLORIDE FLUSH SYRINGE 10 ML IV SCH ×2 (09:01→22:27)
[2018-08-12 09:39] LABS: Hematocrit 24.1 % (35.5-45.6); Hemoglobin 7.5 gm/dl (11.8-15.2)
[2018-08-12] MEDS: ROCEPHIN/NS 1 GM/50 ML 1 GM/50 ML BAG IV SCH (09:44)
--- NOTE | 2018-08-12 14:25 | XRay Report ---
PROCEDURE: XR ABDOMEN 1V AP TECHNIQUE: Supine abdomen HISTORY: STOOL IMPACTION COMPARISON: None FINDINGS: There is prominent stool in the left colon. There is gas in the rectum. I cannot confirm or exclude i mpaction proximal to the rectum. The gas pattern is otherwise nonspecific. There is gas in normal freda iber proximal colon and some gas likely small bowel. There is contrast material in bladder from recent CT exam. Calcifications bilaterally which are likely renal calculi. There are cholecystectomy clips in the right upper quadrant. IMPRESSION: Prominent stool in the left colon, gas in the rectum. Findings are compatible with constipation. I ca nnot confirm or exclude impaction proximal to the rectum. Renal calculi. This document is electronically signed by Vidhya Miller MD., August 12 2018 02:22:56 PM ET
--- NOTE | 2018-08-12 14:44 | Cat Scan Report ---
PROCEDURE: CT HEAD/BRAIN WO CON TECHNIQUE: Computerized tomography of the head was performed without contrast material. CT DOSE LENGTH PRODUCT: 928.4 mGycm HISTORY: cva COMPARISONS: None . FINDINGS: Brain: There is no evidence of intracranial hemorrhage. No parenchymal hemorrhage is seen. No mass lesions or mass effect is identified. No abnormal extra-axial fluid collections or masses are seen. There is some decreased density seen in the periventricular white matter without mass effect. This i s fairly symmetric and does not exhibit any mass effect consistent with gliosis probably on the basis of microvascular disease or white matter changes of aging. Ventricles: The ventricles, sulcal pattern and fissures are prominent consistent with atrophy. Bone Windows: No evidence of fracture. Paranasal sinuses: Visualized portions are clear.. Mastoid air cells: Visualized portions are clear.. IMPRESSION: There is evidence of atrophy and gliosis. No acute intracranial abnormalities are identified. If furt her evaluation is clinically indicated MRI could be obtained. This document is electronically signed by Agustin Maddox MD., August 12 2018 02:42:30 PM ET
--- NOTE | 2018-08-12 15:41 | Progress Note ---
Assessment and Plan 72 y/o male with small right sided pleural effusion and chronic changes in the pleural space. 1. Suggest thoracentesis at the least. Patient has refused and states that "he would rather wait until he goes home". I explained to him this is not a procedure that he can do at home. States that "his doctor can do it, because he's good". I asked if his physician was a bank analyst and he said no. I then explained that he likely cannot do it and he refused our services again. Cancelled stat PT and PTT and INR. Appears to be stable from a pulmonary standpoint and it appears that this process is chronic. At this point will sign off. If patient is more agreeable to our help in the future, please don't hesitate to re-consult. Subjective Date of service: 08/12/18 Interval history: No acute events. Patient awake and alert. On Room air in no distress. Denies any exposure to TB, denies ever being incarcerated. Denies hemoptysis. Discussed the possiblity of thoracentesis. Patient asks me how long he will be here. Objective Vital Signs - 12hr 08/12/18 08/12/18 08/12/18 07:39 10:00 13:58 Temperature 97.4 F L 97.7 F Pulse Rate 75 84 Respiratory 18 18 Rate Blood Pressure 116/62 118/72 O2 Sat by Pulse 100 97 100 Oximetry Constitutional: no acute distress, other (chronically ill-looking) Eyes: non-icteric ENT: oropharynx moist Neck: no JVD Ascultation: Bilateral: diminished breath sounds (right more than left) Percussion: Right: dull Cardiovascular: regular rate and rhythm Gastrointestinal: normoactive bowel sounds, non-distended Integumentary: normal Extremities: no cyanosis, no edema Neurologic: normal mental status, non-focal exam, CN II-XII normal Psychiatric: other (affect is flat) CBC and BMP: 08/12/18 08:44 08/11/18 05:08 Abnormal lab findings: Abnormal Labs 08/10/18 08/10/18 08/11/18 15:47 15:47 05:08 WBC 4.4 L RBC 2.96 L Hgb 9.9 L 7.0 L Hct 32.0 L 22.1 L D MCV 75 L 75 L MCH 23 L 24 L MCHC 31 L RDW 17.7 H 17.1 H Lymph % (Auto) 12.0 L Lymph # 0.8 L 0.7 L Seg Neutrophils % 81.3 H 77.5 H Potassium Chloride Creatinine 0.5 L Glucose Calcium ALT 6 L Albumin 3.6 L Ur Specific [place] Urine WBC (Auto) 08/11/18 08/11/18 08/12/18 05:08 17:09 08:44 WBC RBC Hgb 7.5 L Hct 24.1 L MCV MCH MCHC RDW Lymph % (Auto) Lymph # Seg Neutrophils % Potassium 3.2 L D Chloride 108.3 H Creatinine 0.5 L Glucose 103 H Calcium 8.1 L ALT Albumin Ur Specific [place] 1.047 H Urine WBC (Auto) 14.0 H
[2018-08-12] MEDS: ABILIFY PO SCH (22:25)
[2018-08-13] MEDS: TYLENOL PO PRN ×2 (02:45→06:44)
[2018-08-13] MEDS ORDERED: MIRALAX 3350 PO NR (07:19)
--- NOTE | 2018-08-13 07:29 | Progress Note ---
Assessment and Plan Assessment and plan: 72-year-old man with a history of hypertension, BPH, psychiatric history he was transferred from her for evaluation of nausea and vomiting. The patient stated that these have been nausea vomiting intermittently over the last 2 weeks. He was admitted at [facility], he had a GI workup there, including endoscopy, he does not know the results. Patient wants to follow up with his own doctors in [place], he is a poor historian CT: Stool pattern as described. The patient appears impacted and may also be constipated as described. No evidence of bowel obstruction. Portion of a right pleural effusion visualized. This may be partially loculated. Entire effusion is not visualized. There is a oval density projecting into the right lower lung field as described. Please see above comments. CT of the chest may be helpful for further characterization. Postsurgical changes gastroesophageal junction. Hiatal hernia appears to be present. [place] of the antrum of the stomach appear thickened. I cannot exclude gastritis. Nonobstructing renal calculi visualized in both kidneys. There is also a nonobstructing calculus in the distal third of the right ureter as described. Several small bladder calculi are visualized collected in the inferior aspect of the urinary bladder to the left of midline. Nonspecific diffuse prostate enlargement. Prior laminectomies at L3, L4, L5. The re is grade 1 spondylolisthesis L5 in relation to S1. Previous cholecystectomy. Pancreas is diffusely atrophied. Adrenal hyperplasia is suspected. CT head: No acute Pathologies * Patient was seen by Pulmonary in respect to pleural effusion and refused thoracentsis. Repeat chest xray recommended at this time * No blood was noted on stool on gross exam * Continued treatment of severe constipation continued. Intractable nausea vomiting, -Resolved Acute Cystitis-POA Severe Constipation with Distended Rectum Non obstructive Multiple renal Calculi Left arm weakness-pt Spndylolisthesis L5-poa Prescription Drug dependance including Opioid dependance-poa Hypertension-POA Cachexia Moderate Protein calorie malnourished Anemia Hypokalemia Loculated Right Pleural Effusion with ipsilateral atelectasis-POA Failure to thrive with over 50 Ibs weight loss per family-POA BPH-POA psychiatric history-POA Plan Continue supportive care Will try Biscodyl UT and Polyethelne glycol x 1 Continue rocephin empiric Patient refused thoracentesis- will also discuss with spouse, still high recom mends especially in the setting of weight loss check H/H Avoid Narcotic use wean off seroquel. Per he slurres his words when takes, also the patient was taken double the medication at home Discussed with nursing will attempt to disimpact the patient If not successful will consult GI Stool softners and fleet enema ordered Pulmonary input noted, Continue IV fluid, antiemetics Continue appropriate outpatient medications DVT prophylaxis Plan discussed with the Spouse History Interval history: Patient seen and examined, improved abdominal pain, but reports headache today, 3/10 in intensity Hospitalist Physical - Physical exam Narrative exam: General appearance: Present: mild distress, cachectic, lethargic - EENT Eyes: Present: PERRL, EOM intact ENT: hearing intact, clear oral mucosa - Neck Neck: Present: supple, normal ROM - Respiratory Respiratory effort: normal Respiratory: bilateral: CTA - Cardiovascular Rhythm: irregularly irregular Heart Sounds: Present: S1 & S2 - Extremities Extremities: no ischemia, pulses intact, pulses symmetrical, No edema, normal temperature, Full ROM Peripheral Pulses: within normal limits - Abdominal General gastrointestinal: soft, tender, non-distended, normal bowel sounds Localized gastrointestinal: tender: LLQ - Integumentary Integumentary: Present: clear, warm, dry, chronic skin changes - Psychiatric Psychiatric: appropriate mood/affect, cooperative - Neurologic Neurologic: CNII-XII intact, moves all extremities. spouse reported left sided weakness not currently evident to tx - Allied Health Allied health notes reviewed: nursing - Constitutional Vitals: Temp Pulse Resp BP Pulse Ox 97.5 F L 91 H 18 143/80 95 08/13/18 02:17 08/13/18 02:17 08/13/18 02:17 08/13/18 02:17 08/13/18 02:17 General appearance: Present: mild distress, cachectic Results - Labs CBC & Chem 7: 08/12/18 08:44 08/11/18 05:08 Labs: Laboratory Last Values WBC 4.4 K/mm3 (4.5-11.0) L 08/11/18 05:08 RBC 2.96 M/mm3 (3.65-5.03) L 08/11/18 05:08 Hgb 7.5 gm/dl (11.8-15.2) L 08/12/18 08:44 Hct 24.1 % (35.5-45.6) L 08/12/18 08:44 MCV 75 fl (84-94) L 08/11/18 05:08 MCH 24 pg (28-32) L 08/11/18 05:08 MCHC 32 % (32-34) 08/11/18 05:08 RDW 17.1 % (13.2-15.2) H 08/11/18 05:08 Plt Count 287 K/mm3 (140-440) 08/11/18 05:08 Lymph % (Auto) 14.9 % (13.4-35.0) 08/11/18 05:08 [place] % (Auto) 6.4 % (0.0-7.3) 08/11/18 05:08 Eos % (Auto) 0.7 % (0.0-4.3) 08/11/18 05:08 Baso % (Auto) 0.5 % (0.0-1.8) 08/11/18 05:08 Lymph # 0.7 K/mm3 (1.2-5.4) L 08/11/18 05:08 [place] # 0.3 K/mm3 (0.0-0.8) 08/11/18 05:08 Eos # 0.0 K/mm3 (0.0-0.4) 08/11/18 05:08 Baso # 0.0 K/mm3 (0.0-0.1) 08/11/18 05:08 Seg Neutrophils % 77.5 % (40.0-70.0) H 08/11/18 05:08 Seg Neutrophils # 3.4 K/mm3 (1.8-7.7) 08/11/18 05:08 Sodium 144 mmol/L (137-145) 08/11/18 05:08 Potassium 3.2 mmol/L (3.6-5.0) L D 08/11/18 05:08 Chloride 108.3 mmol/L (98-107) H 08/11/18 05:08 Carbon Dioxide 25 mmol/L (22-30) 08/11/18 05:08 14 mmol/L 08/11/18 05:08 BUN 12 mg/dL (9-20) 08/11/18 05:08 0.5 mg/dL (0.8-1.5) L 08/11/18 05:08 Estimated GFR > 60 ml/min 08/11/18 05:08 24 % 08/11/18 05:08 Glucose 103 mg/dL (75-100) H 08/11/18 05:08 Calcium 8.1 mg/dL (8.4-10.2) L 08/11/18 05:08 0.40 mg/dL (0.1-1.2) 08/10/18 15:47 AST 13 units/L (5-40) 08/10/18 15:47 ALT 6 units/L (7-56) L 08/10/18 15:47 94 units/L (35-129) 08/10/18 15:47 6.6 g/dL (6.3-8.2) 08/10/18 15:47 3.6 g/dL (3.9-5) L 08/10/18 15:47 1.2 % 08/10/18 15:47 Yellow (Yellow) 08/11/18 17:09 Slightly-cloudy (Clear) 08/11/18 17:09 5.0 (5.0-7.0) 08/11/18 17:09 Ur Specific [place] 1.047 (1.003-1.030) H 08/11/18 17:09 30 mg/dl mg/dL (Negative) 08/11/18 17:09 Neg mg/dL (Negative) 08/11/18 17:09 Tr mg/dL (Negative) 08/11/18 17:09 Mod (Negative) 08/11/18 17:09 Neg (Negative) 08/11/18 17:09 Neg (Negative) 08/11/18 17:09 2.0 mg/dL (<2.0) 08/11/18 17:09 Ur Leukocyte Esterase Tr (Negative) 08/11/18 17:09 14.0 /HPF (0.0-6.0) H 08/11/18 17:09 77.0 /HPF (0.0-6.0) 08/11/18 17:09 1+ /HPF (Negative) 08/11/18 17:09 1+ /HPF 08/11/18 17:09 Few /HPF 08/11/18 17:09 Active Medications - Current Medications Current Medications: Generic Name Dose Route Start Last Admin Trade Name Freq PRN Reason Stop Dose Admin Acetaminophen 650 mg 08/10/18 23:02 08/13/18 06:44 Tylenol PO 650 mg Q4H PRN Administration Pain MILD(1-3)/Fever >100.5/PERSAUD Aripiprazole 15 mg 08/11/18 22:00 08/12/18 22:25 Abilify PO 15 mg QHS RIDDHI Administration Bisacodyl 10 mg 08/13/18 08:00 Dulcolax UT 08/13/18 08:01 QDAY ONE Enoxaparin Sodium 40 mg 08/11/18 10:00 08/12/18 09:00 Lovenox SUB-Q 40 mg QDAY RIDDHI Administration Gabapentin 800 mg 08/11/18 08:00 08/12/18 20:42 Neurontin PO 800 mg TID RIDDHI Administration Sodium Chloride 1,000 mls @ 75 mls/hr 08/10/18 23:45 08/12/18 22:27 Nacl 0.45% 1000 Ml IV 75 mls/hr DIRECT RIDDHI Administration Ceftriaxone Sodium 1 gm in 50 mls @ 100 mls/hr 08/12/18 10:00 08/12/18 10:19 Rocephin/Ns 1 Gm/50 Ml IV Infused Q24HR RIDDHI Infusion Protocol Magnesium Hydroxide 30 ml 08/11/18 12:45 08/12/18 22:24 Milk Of Magnesia PO 30 ml Q4H PRN Administration Constipation Metoclopramide HCl 10 mg 08/10/18 23:51 08/12/18 22:41 Reglan IV 10 mg Q6H PRN Administration Nausea And Vomiting Ondansetron HCl 4 mg 08/10/18 23:02 08/12/18 19:54 Zofran IV 4 mg Q8H PRN Administration Nausea And Vomiting Pantoprazole Sodium 40 mg 08/11/18 13:00 08/12/18 09:00 Protonix IV 40 mg QDAY RIDDHI Administration Polyethylene Glycol 17 gm 08/13/18 07:19 Miralax 3350 PO 08/13/18 07:20 ONCE ONE Quetiapine Fumarate 150 mg 08/12/18 22:00 08/12/18 22:26 Seroquel PO 150 mg QHS RIDDHI Administration Senna/Docusate Sodium 1 tab 08/13/18 22:00 Senokot S PO QHS RIDDHI Sertraline HCl 50 mg 08/11/18 10:00 08/12/18 09:00 Zoloft PO 50 mg QAM RIDDHI Administration Sodium Chloride 10 ml 08/11/18 10:00 08/12/18 22:27 Sodium Chloride Flush Syringe 10 Ml IV 10 ml BID RIDDHI Administration Sodium Chloride 10 ml 08/10/18 23:02 Sodium Chloride Flush Syringe 10 Ml IV PRN PRN LINE FLUSH Nutrition/Malnutrition Assess - Dietary Evaluation Nutrition/Malnutrition Findings: Nutrition Notes Start: 08/11/18 17:22 Freq: Status: Active Protocol: Document 08/11/18 17:22 RM (Rec: 08/11/18 17:28 RM [id number]) Nutrition Notes Need for Assessment generated from: home health clinical liaison Initial or Follow up Assessment Current Diagnosis Hypertension Other Pertinent Diagnosis N/V X 2 weeks Current Diet Cardiac Labs/Tests Reviewed Pertinent Medications Reviewed Height 6 ft Weight 68 kg Usual Body Weight 90.45 kg [place] Body Weight (kg) 80.90 BMI 20.3 Subjective/Other Information Screened for malnutrition, chewing difficulty, and skin risk. Eros 17 points. Pt stated that [employer] his appetite was poor and that he ate 1 meal daily. Stated that his appetite is poor now. Declined all ONS. Pt was starting to eat first meal at time of visit. Pt stated UBW is 199 lbs but unsure how long ago he weighed that. Noted orbital wasting. Burn Absent Trauma Absent #1 Nutrition Diagnosis Malnutrition Etiology decreased appetite, N/V As Evidenced by Signs and Symptoms orbital wasting, pt statement that [employer]AGE [employer] he ate 1 meal daily Is patient on ventilator? No Is Patient Ambulatory and/or Out of Bed Yes REE-([facility]-ambulatory/OOB) [ 1914.900 [id number]] Calculation Used for Recommendations [facility] Additional Notes Protein Needs: 68-82g (1-1.2g/ kg) Fluid Needs: 1 ml/kcal Nutrition Intervention Change Diet Order: Continue current Goal #1 PO tolerance Goal #2 Meet at least 75% of calorie and protein needs via PO intakes Anticipated Discharge Needs: Unable to determine at this time Follow-Up By: 08/14/18 Additional Comments Follow for PO intakes
[2018-08-13] MEDS ORDERED: DULCOLAX PR ONE (08:00)
--- NOTE | 2018-08-13 08:11 | Ultrasound Report ---
PROCEDURE: US RENAL BILAT TECHNIQUE: Renal ultrasound HISTORY: nephrolithasis COMPARISON: None FINDINGS: The right kidney measures 11.3 x 5.3 x 5.9 cm. The left kidney measures 10.6 x 5.4 x 5.5 cm. There is no hydronephrosis. There is a calculus in the upper pole of right kidney measuring about 8 mm. There is a calculus in the mid to lower pole of left kidney measuring up to 9 mm. No focal renal mass seen. There is dependent debris in the bladder. There is a small stone dependently in the bladder measuring about 7 mm. Ureteral jets are not evaluated. IMPRESSION: Bilateral nephrolithiasis. No hydronephrosis. Debris and at least one stone in the bladd er. This document is electronically signed by Vidhya Miller MD., August 13 2018 08:09:08 AM ET
[2018-08-13] MEDS: NEURONTIN PO SCH ×3 (08:28→21:17)
[2018-08-13] MEDS: PROTONIX IV SCH (09:13)
[2018-08-13] MEDS: LOVENOX SUB-Q SCH (09:13)
[2018-08-13] MEDS: SODIUM CHLORIDE FLUSH SYRINGE 10 ML IV SCH ×2 (09:13→21:54)
[2018-08-13] MEDS: ZOLOFT PO SCH (09:13)
[2018-08-13] MEDS: ROCEPHIN/NS 1 GM/50 ML 1 GM/50 ML BAG IV SCH (09:14)
[2018-08-13] MEDS: MILK OF MAGNESIA PO PRN (09:41)
[2018-08-13] MEDS ORDERED: ULTRAM PO ONE (12:00)
[2018-08-13 12:51] LABS: Hematocrit 27.8 % (35.5-45.6); Hemoglobin 8.5 gm/dl (11.8-15.2); Mean Corpuscular HGB Conc 31 % (32-34); Mean Corpuscular Volume 77 fl (84-94); Platelet Count 294 K/mm3 (140-440); Red Blood Count 3.59 M/mm3 (3.65-5.03)
[2018-08-13 13:09] LABS: BUN/Creatinine Ratio 24; Blood Urea Nitrogen 12 mg/dL (9-20); Calcium 7.4 mg/dL (8.4-10.2); Hemolysis Index 51
[2018-08-13] MEDS: ABILIFY PO SCH (21:50)
[2018-08-13] MEDS ORDERED: NEURONTIN PO SCH (22:00)
[2018-08-13] MEDS ORDERED: SENOKOT S PO SCH (22:00)
[2018-08-14] MEDS: TYLENOL PO PRN ×3 (04:38→17:11)
[2018-08-14] MEDS: NEURONTIN PO SCH ×2 (07:31→13:19)
[2018-08-14] MEDS: PROTONIX IV SCH (09:07)
[2018-08-14] MEDS: LOVENOX SUB-Q SCH (09:07)
[2018-08-14] MEDS: ZOLOFT PO SCH (09:08)
[2018-08-14] MEDS: SODIUM CHLORIDE FLUSH SYRINGE 10 ML IV SCH (09:08)
[2018-08-14] MEDS: ROCEPHIN/NS 1 GM/50 ML 1 GM/50 ML BAG IV SCH (09:09)
[2018-08-14] MEDS ORDERED: PROTONIX PO SCH (10:00)
--- NOTE | 2018-08-14 11:00 | Discharge Summary ---
Providers - Providers Date of Admission: 08/10/18 23:02 Attending physician: ZO ALCARAZ MD 08/11/18 11:42 Physical Therapy Evaluation and Treat [CONS] Routine Comment: Reason For Exam: Unsteady Gait [facility] Reason for admission: severe constipation Condition: Stable Hospital course: 72-year-old man with a history of hypertension, BPH, psychiatric history he was transferred from her for evaluation of nausea and vomiting. The patient stated that these have been nausea vomiting intermittently over the last 2 weeks. He was admitted at [facility], he had a GI workup there, including endoscopy, he does not know the results. Patient wants to follow up with his own doctors in [place], he is a poor historian CT: Stool pattern as described. The patient appears impacted and may also be constipated as described. No evidence of bowel obstruction. Portion of a right pleural effusion visualized. This may be partially loculated. Entire effusion is not visualized. There is a oval density projecting into the right lower lung field as described. Please see above comments. CT of the chest may be helpful for further characterization. Postsurgical changes gastroesophageal junction. Hiatal hernia appears to be present. [place] of the antrum of the stomach appear thickened. I cannot exclude gastritis. Nonobstructing renal calculi visualized in both kidneys. There is also a nonobstructing calculus in the distal third of the right ureter as described. Several small bladder calculi are visualized collected in the inferior aspect of the urinary bladder to the left of midline. Nonspecific diffuse prostate enlargement. Prior laminectomies at L3, L4, L5. There is grade 1 spondylolisthesis L5 in relation to S1. Previous cholecystectomy. Pancreas is diffusely atrophied. Adrenal hyperplasia is suspected. CT head: No acute Pathologies * Patient was seen by Pulmonary in respect to pleural effusion and refused thoracentsis. Repeat chest xray recommended at this time * No blood was noted on stool on gross exam * Continued treatment of severe constipation continued. * counselling provided about bowel regime * Seroquel dose reduced Intractable nausea vomiting, -Resolved Acute Cystitis-POA Severe Constipation with Distended Rectum Non obstructive Multiple renal Calculi Left arm weakness-pt Spndylolisthesis L5-poa Prescription Drug dependance including Opioid dependance-poa Hypertension-POA Cachexia Moderate Protein calorie malnourished Anemia Hypokalemia Loculated Right Pleural Effusion with ipsilateral atelectasis-POA Failure to thrive with over 50 Ibs weight loss per family-POA BPH-POA psychiatric history-POA Disposition: [id number]/TX-06 HOME UNDER [facility] Time spent for discharge: 35 mins Core Measure Documentation - Palliative Care Palliative Care/ Comfort Measures: Not Applicable - Core Measures Any of the following diagnoses?: none Exam - Physical Exam Narrative exam: General appearance: Present: mild distress, cachectic, - EENT Eyes: Present: PERRL, EOM intact ENT: hearing intact, clear oral mucosa - Neck Neck: Present: supple, normal ROM - Respiratory Respiratory effort: normal Respiratory: bilateral: CTA - Cardiovascular Rhythm: irregularly irregular Heart Sounds: Present: S1 & S2 - Extremities Extremities: no ischemia, pulses intact, pulses symmetrical, No edema, normal temperature, Full ROM Peripheral Pulses: within normal limits - Abdominal General gastrointestinal: soft, non tender, non-distended, normal bowel sounds Localized gastrointestinal: tender: LLQ - Integumentary Integumentary: Present: clear, warm, dry, chronic skin changes - Psychiatric Psychiatric: appropriate mood/affect, cooperative - Neurologic Neurologic: CNII-XII intact, moves all extremities. spouse reported left sided w eakness not currently evident to ks - Allied Health Allied health notes reviewed: nursing - Constitutional Vitals: Temp Pulse Resp BP Pulse Ox 99.4 F 94 H 18 101/58 96 08/14/18 02:40 08/14/18 10:00 08/14/18 10:00 08/14/18 02:40 08/14/18 10:00 Plan Activity: advance as tolerated, fall precautions Diet: low fat Special Instructions: record daily BP diary, physical therapy, occupational therapy Additional Instructions: INCREASE FIBER AND FLUID INTAKE. FOLLOW WITH YOUR VIRTUAL RECRUITER. FOLLOW WITH PULMONARY FOR EVALUATION OF LUNG LESION DISCUSSED Follow up with: DAMARIS SHEETS MD [Primary Care Provider] - 3-5 Days GUILLERMO PERKINS MD [Staff Physician] - 7 Days Prescriptions: Sennosides/Docusate [Senokot S] 1 tab PO QHS #30 tablet QUEtiapine [SEROquel] 150 mg PO QHS #30 tablet Polyethylene Glycol 3350 [Miralax 3350] 17 gm PO QDAY #30 powd.pack
--- NOTE | 2018-08-14 11:04 | XRay Report ---
AP abdomen HISTORY: Abdominal pain. FINDINGS: Mild improvement in fecal retention is demonstrated since 08/12/2018. No evidence for bowel obstruction. There appeared to be multiple small stones in the right kidney. Cholecystectomy changes are identified. The bony structures are demineralized with degenerative change. IMPRESSION: Mild improvement in constipation. No acute process is identified. Right nephrolithiasis. Signer Name: Reyes Yi Jr, MD Signed: 08/14/2018 11:59 AM Workstation Name: [id number]
[2018-08-14 14:56] VITALS: BP 104/58
== END 2018-08-14 19:50 | DRG 690 ==
LOC: ED 15:05 → 2B-ACE 23:02
PROVIDERS: ADMIT Internal Medicine; ATTEND Internal Medicine
DX: N30.00 Acute cystitis without hematuria (principal); J90 Pleural effusion, not elsewhere classified; J98.11 Atelectasis; E44.0 Moderate protein-calorie malnutrition; F11.20 Opioid dependence, uncomplicated; R64 Cachexia; R11.2 Nausea with vomiting, unspecified; K29.70 Gastritis, unspecified, without bleeding; D64.9 Anemia, unspecified; K59.00 Constipation, unspecified; M43.16 Spondylolisthesis, lumbar region; E87.6 Hypokalemia; K44.9 Diaphragmatic hernia without obstruction or gangrene; N20.0 Calculus of kidney; R62.7 Adult failure to thrive; N40.0 Benign prostatic hyperplasia without lower urinary tract symptoms; G89.29 Other chronic pain; F17.210 Nicotine dependence, cigarettes, uncomplicated; I10 Essential (primary) hypertension; Z77.090 Contact with and (suspected) exposure to asbestos; Z90.49 Acquired absence of other specified parts of digestive tract; Z68.20 Body mass index [BMI] 20.0-20.9, adult
CPT/HCPCS: 36415; 70450; 71250; 74018; 74177; 76770; 80048; 80053; 81001; 85014; 85018; 85025; 85027; 87086; 87116; 96374; 96375; 96376; G0378; C9113; J0696; J1650; J2060; J2270; J2405; J2765; J7030; Q9967